=== PATIENT | female | born 1955 | race Hispanic/Latino ===

== ENCOUNTER → 2019-04-01 | Outpatient (CLI) | payer OTHER ==
--- NOTE | 2019-04-01 10:48 | Diagnostic Imaging Report ---
EXAM: US ABDOMEN COMPLETE INDICATION: Right lower quadrant pain. COMPARISON: None TECHNIQUE: Transverse and longitudinal lee scale and color doppler sonographic images of the abdomen were obtained. FINDINGS: LIVER 13.6 cm in the right midclavicular line. Normal echogenicity of the liver with normal contour, no masses. SPLEEN 7.8 cm in maximum diameter. Normal echogenicity, no masses. GALLBLADDER No gallbladder wall thickening, distension, stone, or pericholecystic fluid. Negative reported sonographic Conner's sign. BILE DUCTS No intra nor extra-hepatic biliary dilation. Common bile duct measures 0.3 cm PANCREAS: Visualized portions are normal. RIGHT KIDNEY: 10.2 cm Echogenicity: Normal Collecting System: No hydronephrosis Stones: None Cyst/Mass: None LEFT KIDNEY: 10.3 cm Echogenicity: Normal Collecting System : No hydronephrosis Stones: None Cyst/Mass: None VESSELS: Aorta: Visualized portions are within normal size limits Inferior Vena Cava: Visualized portions are normal Main Portal Vein: 0.8 cm, normal size with hepatopetal flow. FREE FLUID: None IMPRESSION: Unremarkable abdominal ultrasound. Signed by: Dr. Teresa Soliman MD on 04/01/2019 10:44 AM
--- NOTE | 2019-04-01 12:49 | Diagnostic Imaging Report ---
Exam: Pelvic ultrasound History: Right lower quadrant pain. Comparison: None. Findings: Limited examination secondary to overlying bowel gas. Furthermore, the bladder was not full. Transabdominal evaluation of the pelvis. The uterus measures 6.6 x 3.9 x 5.1 cm. No evidence of fibroid. Endometrial stripe measures 0.2 cm. The right and left ovaries are not visualized due to overlying bowel gas. No free fluid. Impression: Limited examination as above. The bilateral ovaries are not visualized. Signed by: Dr. Teresa Soliman MD on 04/01/2019 12:46 PM
== END ==
LOC: US 08:51
PROVIDERS: ATTEND Family Medicine
DX: R10.31 Right lower quadrant pain (principal)
CPT/HCPCS: 76700; 76856

== ENCOUNTER → 2024-12-02 | Day surgery (SDC) | payer MEDICARE, OTHER ==
[2024-12-01 09:36] LABS: BASOPHILS % 0.8 % (0.0-1.0); EOSINOPHILS # (AUTO) 0.1 (0.0-0.4); EOSINOPHILS % 1.9 % (0.0-6.0); HEMATOCRIT 41.8 % (34.2-44.1); HEMOGLOBIN 13.4 g/dL (12.0-16.0); LYMPHOCYTES # (AUTO) 1.2 (1.0-3.2); LYMPHOCYTES % 31.8 % (18.0-39.1); MEAN CORPUSCULAR HEMOGLOBIN 30.2 pg (28-32); MEAN CORPUSCULAR HGB CONC 32.1 g/dL (31-35); MEAN CORPUSCULAR VOLUME 94.1 fL (81-99); MONOCYTES # (AUTO) 0.3 (0.2-0.8); MONOCYTES % 7.8 % (4.4-11.3); NEUTROPHILS # (AUTO) 2.1 (2.1-6.9); NEUTROPHILS % 57.4 % (38.7-80.0); PLATELET COUNT 230 x10e3/uL (140-360); RED BLOOD COUNT 4.44 x10e6/uL (3.6-5.1); WHITE BLOOD COUNT 3.71 x10e3/uL (4.8-10.8)
[~2024-12-02] MED LIST: ARIMIDEX1 MG PO; LIDOCAINE HCL 2% LOCAL INJ 5 ML SDV VIAL INJ ONE; LOSARTAN POTAS100 MG PO; NEURONTIN300 MG PO; PROPOFOL IV EMULSION 10 MG/ML 20 ML VIAL ONE; VITAMIN D3 COM1 EACH PO
[2024-12-02] MEDS: LACTATED RINGER'S 1,000 ML ONE (08:02)
[2024-12-02 10:01] VITALS: TEMP 97.8
[2024-12-02 10:45] VITALS: BP 128/81; PULSE 61; RESP 16; O2SAT 100
== END | disposition home or self-care (01) ==
LOC: OR 06:27
PROVIDERS: ATTEND Internal Medicine Gastroenterology
DX: Z09 Encounter for follow-up examination after completed treatment for conditions other than malignant neoplasm (principal); Z86.0100 Personal history of colon polyps, unspecified; K64.8 Other hemorrhoids; Z71.3 Dietary counseling and surveillance; I10 Essential (primary) hypertension; E78.5 Hyperlipidemia, unspecified; M85.80 Other specified disorders of bone density and structure, unspecified site; Z78.9 Other specified health status; Z01.810 Encounter for preprocedural cardiovascular examination; Z01.812 Encounter for preprocedural laboratory examination; Z79.899 Other long term (current) drug therapy; Z68.20 Body mass index [BMI] 20.0-20.9, adult
CPT/HCPCS: 36415; 45378; 85025; 93005; J2003; J2704; J7121